=== PATIENT | male | born 1990 | race Caucasian/White ===

== ENCOUNTER 2023-06-28 00:05 | Emergency (ER) | payer OTHER ==
[~2023-06-28] VITALS: Ht 170.2 cm; Wt 82.0 kg
[2023-06-28 00:07] VITALS: TEMP 98.5; O2SAT 100
[2023-06-28] MEDS ORDERED: T3 PO (01:59)
[2023-06-28] MEDS ORDERED: KETOROLAC 30MG/ML VIAL IM ONE (02:00)
[2023-06-28 02:46] VITALS: BP 120/62; PULSE 94; RESP 18
== END 2023-06-28 02:59 | disposition home or self-care (01) ==
LOC: ER 00:05
DX: S82.832A Other fracture of upper and lower end of left fibula, initial encounter for closed fracture (principal); X58.XXXA Exposure to other specified factors, initial encounter; Y93.89 Activity, other specified; Y92.89 Other specified places as the place of occurrence of the external cause; Y99.8 Other external cause status
CPT/HCPCS: 73600; 29125; 99283; Z7610; J1885